=== PATIENT | male | born 1980 | race Caucasian/White ===

== ENCOUNTER 2018-06-04 01:01 | Emergency (ER) | payer SELFPAY ==
[2018-06-04] MEDS ORDERED: DOXYCYCLINE HYCLATE 100 MG CAPSULE PO ONE ×2 (03:01→03:40)
[2018-06-04 03:04] VITALS: BP 116/80; PULSE 101; TEMP 98; BMI 23.7
--- NOTE | 2018-06-04 03:07 | PDOC ---
History of Present Illness - General Chief Complaint: Bite Stated Complaint: BITE/TICK Time Seen by Provider: 06/04/18 02:48 History Source: Patient Exam Limitations: No Limitations - History of Present Illness Initial Comments: 38 yo M w no sig pmh presents stating he believes he was bitten by a tick at the hotel he is staying at. He is not aware how long the tick was attached for. he felt an itching sensation in his left armpit, looked at the mirror and noticed that there was something black there. He killed the tick and brought it in with him to the ER. He denies any rashes, fevers, weakness, paresthesias, tingling, or chills. PCP: from [place] - doesn't remember his name Past History - Past Medical History Allergies/Adverse Reactions: Allergies Allergy/AdvReac Type Severity Reaction Status Date / Time No Known Allergies Allergy Verified 06/04/18 02:58 - Suicide/Smoking/Psychosocial Hx Smoking History: Never smoked Have you smoked in the past 12 months: No Information on smoking cessation initiated: No Hx Alcohol Use: No Drug/Substance Use Hx: No Review of Systems - Review of Systems Comments:: CONSTITUTIONAL: Absent: fever, no chills, no fatigue EYES: Absent: visual changes ENT: Absent: ear pain, no sore throat CARDIOVASCULAR: Absent: chest pain, no palpitations RESPIRATORY: Absent: cough, no SOB GI: Absent: abdominal pain, no nausea, no vomiting, no constipation, no diarrhea GENITOURINARY: Absent: dysuria, no frequency, no hematuria MUSKULOSKELETAL: Absent: back pain, no arthralgia, no myalgia SKIN: Absent: rash NEURO: Absent: headache *Physical Exam - Vital Signs Last Vital Signs Temp Pulse Resp BP Pulse Ox 98 F 101 H 15 116/80 97 06/04/18 01:01 06/04/18 01:01 06/04/18 01:01 06/04/18 01:01 06/04/18 01:01 - Physical Exam Comments: GENERAL: Well-appearing, well-nourished. No apparent distress. HEENT: Normocephalic, atraumatic. PERRL, EOM intact. CARDIOVASCULAR: Normal S1, S2. Regular rate and rhythm. PULMONARY: No evidence of respiratory distress. Lungs clear to auscultation bilaterally. No wheezing, rales or rhonchi. ABDOMEN: Soft, non-distended, non-tender. EXTREMITIES: Normal ROM in all four extremities. No gross deformities. SKIN: Warm, dry. No rash NEUROLOGICAL: No focal neurological deficits. Moderate Sedation - Procedure Monitoring Vital Signs: Procedure Monitoring Vital Signs Temperature 98 F 06/04/18 01:01 Pulse Rate 101 H 06/04/18 01:01 Respiratory Rate 15 06/04/18 01:01 Blood Pressure 116/80 06/04/18 01:01 O2 Sat by Pulse Oximetry (%) 97 06/04/18 01:01 Medical Decision Making - Medical Decision Making 38 yo M w no sig pmh presents stating he believes he was bitten by a tick at the hotel he is staying at. He is not aware how long the tick was attached for. he felt an itching sensation in his left armpit, looked at the mirror and noticed that there was something black there. He killed the tick and brought it in with him to the ER. He denies any rashes, fevers, weakness, paresthesias, tingling, or chills. DDx IBNLT: Lyme, babesiosis, erlichiosis, anaplasmosis, bed bugs Plan: YUDELKA Crouch *DC/Admit/Observation/Transfer Diagnosis at time of Disposition: Tick bite - Discharge Dispostion Disposition: HOME Condition at time of disposition: Fair Decision to Admit order: No - Referrals Referrals: [facility] [place] [Provider Group] - Patient Instructions Printed Discharge Instructions: How to Care for an Insect Bite or Sting, DI for Insect Bites and Stings Additional Instructions: Please come back for any new or worsening concerns. Print Language: KAZAKH - Post Discharge Activity
--- NOTE | 2018-06-04 03:09 | PDOC ---
Attending Attestation - Resident Resident Name: Felice Rodriguez - ED Attending Attestation I have performed the following: I have examined & evaluated the patient, The case was reviewed & discussed with the resident, I agree w/resident's findings & plan, Exceptions are as noted - HPI HPI: 06/04/18 03:08 38 yo male s/p bug bite. found tick in axilla on left. now pulled it off. no rash. no myalgia. no other complaints. - Physicial Exam PE: 06/04/18 03:09 awake alert lungs clear bilaterally heart rrr no mr abd soft nt nd.axilla left no rash. - Medical Decision Making 06/04/18 03:09 plan treat prophylaxis for lyme doxy po x one.
== END 2018-06-04 03:42 | disposition home or self-care (01) ==
LOC: JER 01:01
DX: S40.862A Insect bite (nonvenomous) of left upper arm, initial encounter (principal); W57.XXXA Bitten or stung by nonvenomous insect and other nonvenomous arthropods, initial encounter; Y93.89 Activity, other specified; Y92.59 Other trade areas as the place of occurrence of the external cause; Y99.8 Other external cause status
CPT/HCPCS: 87168; 99281-25